=== PATIENT | female | born 1940 | race Caucasian/White ===

== ENCOUNTER → 2016-09-15 | Outpatient (CLI) | payer MEDICARE ==
--- NOTE | ~2016-09-15 | MR104 ---
[facility] A Service of [facility] & [facility] / [facility] RADIOLOGY TEXT RESULTS PATIENT: MICHEL VALDEZ LOCATION: [facility] : 40 UNIT #: [id number] AGE: [address]: JUN ATWOOD MD SEX: F ORDER DR: [id number] [facility] [address] [place], [place] [address] [id number] O MR#: [id number] Acc #: [id number] NAME: MICHEL VALDEZ : 1940 SEX: F STUDY DATE/TIME: 09/15/2016 13:53 UNIT: [facility] ROOM: STUDY DESCRIPTION: MR Knee Wo Contrast Rt Attending Physician: Jun Atwood M.D. Referring Physician: Jun Atwood M.D. Ordering Physician: Jun Atwood M.D. Primary Care Physician: Jun Atwood M.D. MRI CENTER REPORT This report is preliminary unless electronic signature is present. EXAM MRI of the right knee 09/15/2016 COMPARISON Right knee radiographs 07/26/2016. HISTORY Order states bilateral knee pain. History sheet states sudden onset of right knee pain approximately 06/19/2016 medially. No fall or injury. X-ray in July 22 and doctor suggested a bone bruise. No knee surgery. FINDINGS There is a small effusion without a popliteal cyst. Patellofemoral alignment is normal. 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 The femoral trochlear articular cartilage is within normal limits. Quadriceps and patellar tendons are intact. Cruciate ligaments are within normal limits. The lateral meniscus, lateral collateral ligament complex, and popliteus tendon are intact. The articular cartilage of the lateral compartment is normal. There is a tear of the posterior root with detachment of the medial meniscus. There is secondary minimal medial meniscal subluxation and diffuse myxoid degeneration in the posterior body and horn with mild free margin irregularity. There is no displaced meniscal flap or fragment. The MCL is intact. Medial compartment joint space narrowing is present with high-grade chondromalacia of the posterior lateral aspect of the medial femoral condyle. There is mild subarticular marrow edema without an insufficiency fracture. STS. [facility] A Service of [facility] & [facility] / [facility] RADIOLOGY TEXT RESULTS PATIENT: MICHEL VALDEZ LOCATION: [facility] : 40 UNIT #: [id number] AGE: [address]: JUN ATWOOD MD SEX: F ORDER DR: There is no marrow lesion, fracture, or loose body identified. IMPRESSION 1. 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 2. Mild medial compartment arthrosis. 3. Mild patellofemoral arthrosis. 4. Small effusion. 5. No fracture or loose body. Dictated by... Rebekah Hernandez M.D. THIS IS AN ELECTRONICALLY VERIFIED REPORT Rebekah Hernandez M.D. at 09/16/2016 1:44 PM KRISTEN/israel TD: 09/16/2016 12:38 JOB #: [id number] MRI CENTER REPORT Page 1 of 1 COPY
--- NOTE | ~2016-09-15 | MR103 ---
[facility] A Service of [facility] & [facility] RADIOLOGY TEXT RESULTS PATIENT: MICHEL VALDEZ LOCATION: [facility] : 40 UNIT #: [id number] AGE: [address]: JUN ATWOOD MD SEX: F ORDER DR: [id number] [facility] [address] [place], [place] [address] [id number] O MR#: [id number] Acc #: [id number] NAME: MICHEL VALDEZ : 1940 SEX: F STUDY DATE/TIME: 09/15/2016 13:13 UNIT: [facility] ROOM: STUDY DESCRIPTION: MR Knee Wo Contrast Lt Attending Physician: Jun Atwood M.D. Referring Physician: Jun Atwood M.D. Ordering Physician: Jun Atwood M.D. Primary Care Physician: Jun Atwood M.D. MRI CENTER REPORT This report is preliminary unless electronic signature is present. EXAM MRI left knee 09/15/2016 COMPARISON Left knee radiographs 05/10/2010. HISTORY Order states bilateral knee pain. History sheet states chronic left knee pain for years. Diffuse left knee pain. No left knee surgery or injury. FINDINGS There is no effusion or popliteal cyst. There is patellofemoral arthrosis with joint space narrowing, minimal osteophyte formation, and moderate grade chondromalacia patella predominantly involving the median ridge. There is [id number] grade chondromalacia of the superior femoral trochlea. Quadriceps and patellar tendons are intact. Cruciate ligaments are intact. There is enthesopathic cystic change of the tibia at the ACL insertion. PCL is normal. The lateral meniscus, lateral collateral ligament complex, and popliteus tendon are intact. The articular cartilage of the lateral compartment is normal. There is moderately advanced medial compartment arthrosis with joint space narrowing, extensive weight bearing grade 4 chondromalacia of the medial femoral condyle and medial tibial plateau, and subarticular marrow edema. Minimal marginal osteophyte formation is noted. There is medial meniscal extrusion with slight cranial migration (the latter in the mid - and anterior body segment). The posterior body and horn and truncated, but no discrete tear is demonstrated. The MCL is intact. [facility]. [facility] A Service of [facility] & [facility] RADIOLOGY TEXT RESULTS PATIENT: MICHEL VALDEZ LOCATION: [facility] : 40 UNIT #: [id number] AGE: [address]: JUN ATWOOD MD SEX: F ORDER DR: There is no fracture. An 8 mm loose body is suspected in the medial peripatellar bursa. There is a 12 x 12 x 10 mm (AP x transverse x craniocaudal) nonspecific mildly heterogeneous small marrow lesion at the anterior aspect of the lateral femoral condyle just above and abutting the physeal scar peripherally. The lesion has diminished central signal and increased T2 surrounding signal. There is no correlative to radiographic finding; however these radiographs date back to 05/10/2010. Comparison with recent left knee radiographs is recommended. 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 If radiographs can document a chondroid matrix, the lesion can likely be followed radiographically. If there is potential pain referable to the lesion, a three-phase bone scan and orthopedic evaluation should be considered. IMPRESSION 1. Mild patellofemoral arthrosis detailed above. 2. Moderately advanced medial compartment arthrosis with meniscal extrusion and myxoid degeneration but no discrete or sizeable tear. Posterior body and horn are truncated. 3. The lateral compartment is unremarkable. 4. Small effusion and a small loose body detailed above. 5. Small distal femoral lateral marrow lesion statistically is likely benign but has an indeterminate MRI appearance and no recent radiographs for correlation. See above discussion and recommendations. Dictated by... Rebekah Hernandez M.D. THIS IS AN ELECTRONICALLY VERIFIED REPORT Rebekah Hernandez M.D. at 09/16/2016 1:43 PM KRISTEN/israel TD: 09/16/2016 12:08 JOB #: [id number] MRI CENTER REPORT Page 1 of 1 COPY
== END | disposition home or self-care (01) ==
LOC: CMRI 12:35
DX: M25.561 Pain in right knee (principal); M25.562 Pain in left knee; M17.0 Bilateral primary osteoarthritis of knee; M23.304 Other meniscus derangements, unspecified medial meniscus, left knee; M23.321 Other meniscus derangements, posterior horn of medial meniscus, right knee; M25.462 Effusion, left knee; M25.461 Effusion, right knee; M23.42 Loose body in knee, left knee
CPT/HCPCS: 73721